=== PATIENT | female | born 1980 | race Caucasian/White ===

== ENCOUNTER 2019-03-21 05:30 | Inpatient (IN) ==
[2019-03-21] MEDS ORDERED: ONDANSETRON 4 MG/2 ML VIAL IV PRN ×2 (05:43→19:55)
[2019-03-21] MEDS ORDERED: MEPERIDINE 50 MG/1 ML VIAL IV PRN (05:43)
[2019-03-21] MEDS ORDERED: OXYTOCIN/LR 20 UNIT/1,000 ML BAG IV SCH (06:00)
[2019-03-21] MEDS: LACTATED RINGERS 1,000 ML IV SCH ×3 (06:05→13:16)
[2019-03-21 06:17] LABS: Basophils % 0.4 % (0.0-0.8); Eosinophils # 0.1 10*3/uL (0.0-0.87); Eosinophils % 0.8 % (0.00-10.9); Hematocrit 34.3 VOL% (35.7-47.0); Hemoglobin 10.7 GM/DL (12.0-16.0); Immature Granulocytes % 0.7 %; Immature Granulocytes Absolute 0.08 #; Lymphocytes # 2.8 10*3/uL (1.4-4.0); Lymphocytes % 25.4 % (21.3-54.2); Mean Corpuscular HGB Conc 31.2 GM/DL (32-36); Mean Corpuscular Volume 83.7 FL (87-102); Mean Platelet Volume 12.3 FL (9.6-12.0); Monocytes % 5.7 % (1.7-12.7); Platelet Count 191 T/CUMM (130-400); Red Cell Distribution Width 17.1 % (9.3-17.3); White Blood Count 10.9 T/CUMM (4-12)
[2019-03-21 06:44] LABS: Albumin 2.8 G/DL (3.4-5.0); Bilirubin,Total 0.9 MG/DL (0.2-1.0); Calcium 8.7 MG/DL (8.5-10.1); Osmolality,Calculated 276.5 MOS/KG (273-304); Total Protein 6.6 G/DL (6.4-8.3)
[2019-03-21 07:11] LABS: INR 0.9; Partial Thromboplastin Time 23.3 SECS (20.8-36.0)
[2019-03-21] MEDS ORDERED: ePHEDrine 50 MG/ML AMP IV PRN (08:05)
[2019-03-21] MEDS ORDERED: NALOXONE 0.4 MG/ML VIAL IV PRN (08:05)
[2019-03-21] MEDS ORDERED: diphenhydrAMINE 50 MG/1 ML VIAL IV PRN ×2 (08:05)
[2019-03-21] MEDS ORDERED: hydrOXYzine HCL 25 MG/1 ML VIAL IM PRN (08:05)
[2019-03-21] MEDS ORDERED: CITRIC ACID/SODIUM CITRATE 30 ML UDCUP PO ONE (08:05)
[2019-03-21] MEDS ORDERED: PROMETHAZINE 25 MG/1 ML VIAL IM ONE (08:05)
[2019-03-21] MEDS ORDERED: FAMOTIDINE 20 MG/2 ML VIAL IV ONE (08:05)
[2019-03-21] MEDS ORDERED: fentaNYL 2 MCG/ROPIV 0.2% EPID 100 ML EPIDURAL SCH (08:30)
[2019-03-21 11:15] LABS: Apearance,Urine CLEAR (Clear); Bilirubin,Urine Negative (Negative); Blood, Urine Negative (Negative); Glucose,Urine (UA) Negative (Negative); Ketones,Urine Negative (Negative); Mucus,Urine Occasional /LPF (Occasional); Nitrite,Urine Negative (Negative); Protein,Urine 30 MG/DL; RBC,Urine 1 /HPF (0-4); Squamous Epithelial Cell,Urine Occasional /HPF (0-10); Urine Color Yellow (Yellow); Urine Specific Gravity 1.017 (1.001-1.035); Urine Urobilinogen < 2.0 EU/DL (0.2-1.0); WBC,Urine <1 /HPF (0-6)
[2019-03-21] MEDS ORDERED: TRANEXAMIC ACID 1,000 MG/10 ML VIAL ONE (16:38)
[2019-03-21] MEDS ORDERED: OXYTOCIN/LR 20 UNIT/1,000 ML BAG IV ONE ×2 (16:38→19:55)
[2019-03-21] MEDS ORDERED: METHYLERGONOVINE 0.2 MG/1 ML AMP ONE (16:38)
[2019-03-21] MEDS ORDERED: miSOPROStoL 200 MCG TABLET ONE (16:38)
[2019-03-21] MEDS ORDERED: CARBOPROST TROMETHAMINE 250 MCG/ML AMP IM ONE (16:38)
[2019-03-21] MEDS ORDERED: AZITHROMYCIN INJ 500 MG in SODIUM CHLORIDE 0.9% 250 ML IV ONE (18:40)
[2019-03-21] MEDS ORDERED: fentaNYL 100 MCG/2 ML VIAL ONE (18:57)
[2019-03-21] MEDS ORDERED: LIDOCAINE MPF 2% /EPI 20 ML VIAL ONE (18:58)
[2019-03-21] MEDS ORDERED: BENZOCAINE 20%/MENTHOL 0.5% SPRAY 56 GM CAN TOP PRN (19:55)
[2019-03-21] MEDS ORDERED: DIPH/TET/ACEL PERT BOOSTER VACCINE 0.5 ML VIAL IM ONE (19:55)
[2019-03-21] MEDS ORDERED: RHO(D) IMMUNE GLOBULIN 300 MCG SYRINGE IM ONE (19:55)
[2019-03-21] MEDS ORDERED: WITCH HAZEL PADS 100/JAR TOP PRN (19:55)
[2019-03-21] MEDS ORDERED: BISACODYL 10 MG SUPP RECTAL PRN (19:55)
[2019-03-21] MEDS ORDERED: ACETAMINOPHEN 325 MG TABLET PO PRN (19:55)
[2019-03-21] MEDS ORDERED: MEASLES/MUMPS/RUBELLA VACCINE 0.5 ML VIAL SUBCUT ONE (19:55)
[2019-03-21] MEDS ORDERED: HYDROCORTISONE 2.5% RECTAL CREAM 30 GM TUBE TOP PRN (19:55)
[2019-03-21] MEDS ORDERED: LANOLIN 50% CREAM 0.3 OZ TUBE TOP PRN (19:55)
[2019-03-21] MEDS ORDERED: oxyCODONE/ACETAMINOPHEN 5-325 MG TABLET PO PRN (19:55)
[2019-03-21] MEDS: IBUPROFEN 800 MG TABLET PO PRN (22:08)
[2019-03-22] MEDS: DOCUSATE SODIUM 100 MG CAPSULE PO SCH ×3 (01:25→20:59)
[2019-03-22] MEDS: IBUPROFEN 800 MG TABLET PO PRN ×2 (04:05→15:13)
[2019-03-22 05:46] LABS: Basophils % 0.2 % (0.0-0.8); Eosinophils % 0.1 % (0.00-10.9); Hemoglobin 8.9 GM/DL (12.0-16.0); Immature Granulocytes % 0.6 %; Lymphocytes # 2.3 10*3/uL (1.4-4.0); Mean Corpuscular HGB Conc 30.7 GM/DL (32-36); Mean Corpuscular Volume 85.5 FL (87-102); Mean Platelet Volume 12.7 FL (9.6-12.0); Monocytes % 5.5 % (1.7-12.7); Neutrophils % 79.6 % (38.7-73.9); Platelet Count 157 T/CUMM (130-400); Red Blood Count 3.39 MC/CUMM (3.8-5.5); Red Cell Distribution Width 17.2 % (9.3-17.3); White Blood Count 16.6 T/CUMM (4-12)
[2019-03-22] MEDS: MAGNESIUM HYDROXIDE SUSP 30 ML UDCUP PO PRN ×2 (09:01→20:59)
[2019-03-22] MEDS: FERROUS SULFATE 325 MG TABLET PO SCH (09:02)
[2019-03-22] MEDS: oxyCODONE/ACETAMINOPHEN 5-325 MG TABLET PO PRN ×2 (10:22→22:23)
[2019-03-23] MEDS: IBUPROFEN 800 MG TABLET PO PRN ×2 (01:59→08:04)
[2019-03-23] MEDS: DOCUSATE SODIUM 100 MG CAPSULE PO SCH (09:22)
[2019-03-23] MEDS: FERROUS SULFATE 325 MG TABLET PO SCH (09:22)
[2019-03-23 09:27] VITALS: BP 136/72
== END 2019-03-23 12:50 | disposition home or self-care (01) | DRG 788 ==
LOC: N.LD 05:36 → N.OB 23:55
PROVIDERS: ADMIT Specialist; ATTEND Specialist
PROC: LDCSECT (ICD-10-PCS; 2019-03-21 18:35)

== ENCOUNTER 2020-06-04 06:24 | Inpatient (IN) ==
[2020-06-04] MEDS: LACTATED RINGERS 1,000 ML IV PRN ×2 (07:10→08:16)
[2020-06-04] MEDS ORDERED: OXYTOCIN/LR 20 UNIT/1,000 ML BAG IV ONE ×2 (07:23→11:41)
[2020-06-04 07:52] LABS: Basophils % 0.4 % (0.0-0.8); Eosinophils # 0.1 10*3/uL (0.0-0.87); Eosinophils % 1.1 % (0.00-10.9); Hematocrit 36.2 VOL% (35.7-47.0); Hemoglobin 11.8 GM/DL (12.0-16.0); Immature Granulocytes % 0.8 %; Immature Granulocytes Absolute 0.08 #; Lymphocytes # 2.2 10*3/uL (1.4-4.0); Lymphocytes % 21.4 % (21.3-54.2); Mean Corpuscular HGB Conc 32.6 GM/DL (32-36); Mean Corpuscular Volume 86.2 FL (87-102); Mean Platelet Volume 12.1 FL (9.6-12.0); Monocytes % 6.3 % (1.7-12.7); Platelet Count 164 T/CUMM (130-400); Red Cell Distribution Width 15.7 % (9.3-17.3); White Blood Count 10.2 T/CUMM (4-12)
[2020-06-04] MEDS ORDERED: FAMOTIDINE 20 MG/2 ML VIAL IV ONE ×2 (08:00→10:14)
[2020-06-04] MEDS ORDERED: CITRIC ACID/SODIUM CITRATE 30 ML UDCUP PO ONE (08:00)
[2020-06-04 08:04] LABS: Alanine Aminotransferase < 6 U/L (13-56); Albumin 2.7 G/DL (3.4-5.0); Alkaline Phosphatase 283 U/L (45-117); Aspartate Amino Transferase 15 U/L (0-37); Blood Urea Nitrogen 8 MG/DL (7-18); Calcium 9.1 MG/DL (8.5-10.1); Estimated Glom Filtration Rate 86 ML/MIN; Glucose 76 MG/DL (74-106); Osmolality,Calculated 271.7 MOS/KG (273-304); Total Protein 6.6 G/DL (6.4-8.3)
[2020-06-04] MEDS ORDERED: miSOPROStoL 200 MCG TABLET ONE (10:13)
[2020-06-04] MEDS ORDERED: CITRIC ACID/SODIUM CITRATE 30 ML UDCUP ONE (10:14)
[2020-06-04] MEDS ORDERED: LEVOFLOXACIN INJ 500 MG in PREMIX 1 EACH IV ONE (10:16)
[2020-06-04] MEDS ORDERED: PHENYLEPHRINE 1 MG/10 ML SYRINGE IV ONE ×2 (10:52→11:09)
[2020-06-04] MEDS ORDERED: BUPIVACAINE SPINAL 0.75% 2 ML AMP SPINAL ONE (10:52)
[2020-06-04] MEDS ORDERED: ONDANSETRON 4 MG/2 ML VIAL ONE (11:09)
[2020-06-04] MEDS ORDERED: DEXAMETHASONE 4 MG/1 ML VIAL ONE (11:17)
[2020-06-04] MEDS ORDERED: ROPIVACAINE 0.5% 30 ML VIAL ONE (11:17)
[2020-06-04 11:25] LABS: Cord Arterial Blood HCO3 21.6 MMOL/L
[2020-06-04 11:27] LABS: Cord Venous Blood HCO3 22.9 MMOL/L; Cord Venous Blood PCO2 40.5 MMHG; Cord Venous Blood PO2 32.4
[2020-06-04 11:34] LABS: Bilirubin,Urine Negative (Negative); Blood, Urine Negative (Negative); Glucose,Urine (UA) Negative (Negative); Ketones,Urine 20 mg/dL (Negative); Nitrite,Urine Negative (Negative); Protein,Urine Negative; RBC,Urine 2 /HPF (0-4); Squamous Epithelial Cell,Urine Occasional /HPF (0-10); Urine Appearance CLEAR (Clear); Urine Color Straw (Yellow); Urine Specific Gravity 1.011 (1.001-1.035); Urine Urobilinogen < 2.0 EU/DL (0.2-1.0); WBC,Urine <1 /HPF (0-6)
[2020-06-04] MEDS ORDERED: BISACODYL 10 MG SUPP RECTAL PRN (11:41)
[2020-06-04] MEDS ORDERED: LANOLIN 50% CREAM 0.3 OZ TUBE TOP PRN (11:41)
[2020-06-04] MEDS ORDERED: MEASLES/MUMPS/RUBELLA VACCINE 0.5 ML VIAL SUBCUT ONE (11:41)
[2020-06-04] MEDS ORDERED: HYDROCORTISONE 2.5% RECTAL CREAM 30 GM TUBE TOP PRN (11:41)
[2020-06-04] MEDS ORDERED: WITCH HAZEL PADS 100/JAR TOP PRN (11:41)
[2020-06-04] MEDS ORDERED: oxyCODONE/ACETAMINOPHEN 5-325 MG TABLET PO PRN (11:41)
[2020-06-04] MEDS ORDERED: RHO(D) IMMUNE GLOBULIN 300 MCG SYRINGE IM ONE (11:41)
[2020-06-04] MEDS ORDERED: DIPH/TET/ACEL PERT BOOSTER VACCINE 0.5 ML VIAL IM ONE (11:41)
[2020-06-04] MEDS ORDERED: ONDANSETRON 4 MG/2 ML VIAL IV PRN (11:41)
[2020-06-04] MEDS ORDERED: ACETAMINOPHEN 325 MG TABLET PO PRN (11:41)
[2020-06-04] MEDS ORDERED: BENZOCAINE 20%/MENTHOL 0.5% SPRAY 56 GM CAN TOP PRN (11:41)
[2020-06-04] MEDS ORDERED: hydrOXYzine HCL 25 MG/1 ML VIAL IM PRN (13:29)
[2020-06-04] MEDS ORDERED: diphenhydrAMINE 50 MG/1 ML VIAL IV PRN (13:29)
[2020-06-04] MEDS ORDERED: LACTATED RINGERS 1,000 ML IV SCH (13:30)
[2020-06-04] MEDS ORDERED: SODIUM CHLORIDE 0.9% 1,000 ML IV SCH (13:30)
[2020-06-04] MEDS: HYDROmorphone 2 MG/1 ML VIAL IV PRN ×2 (14:06→17:30)
[2020-06-04] MEDS: IBUPROFEN 800 MG TABLET PO PRN ×2 (15:49→23:27)
[2020-06-04] MEDS: SIMETHICONE CHEW 80 MG TABLET PO PRN (17:30)
[2020-06-04] MEDS ORDERED: LEVOFLOXACIN INJ 500 MG in PREMIX 1 EACH IV SCH (20:00)
[2020-06-04] MEDS: DOCUSATE SODIUM 100 MG CAPSULE PO SCH (20:57)
[2020-06-05] MEDS: oxyCODONE/ACETAMINOPHEN 5-325 MG TABLET PO PRN ×2 (03:03→12:33)
[2020-06-05 05:55] LABS: Basophils # 0.1 10*3/uL (0.0-0.2); Basophils % 0.4 % (0.0-0.8); Eosinophils # 0.1 10*3/uL (0.0-0.87); Eosinophils % 0.9 % (0.00-10.9); Hematocrit 30.7 VOL% (35.7-47.0); Hemoglobin 10.1 GM/DL (12.0-16.0); Immature Granulocytes % 0.6 %; Immature Granulocytes Absolute 0.09 #; Lymphocytes # 2.1 10*3/uL (1.4-4.0); Lymphocytes % 14.6 % (21.3-54.2); Mean Corpuscular HGB Conc 32.9 GM/DL (32-36); Mean Corpuscular Volume 86.7 FL (87-102); Mean Platelet Volume 12.8 FL (9.6-12.0); Monocytes % 7.3 % (1.7-12.7); Neutrophils % 76.2 % (38.7-73.9); Platelet Count 138 T/CUMM (130-400); Red Blood Count 3.54 MC/CUMM (3.8-5.5); Red Cell Distribution Width 15.2 % (9.3-17.3)
[2020-06-05 07:14] VITALS: BP 118/76
[2020-06-05] MEDS: IBUPROFEN 800 MG TABLET PO PRN (08:56)
[2020-06-05] MEDS ORDERED: INFLUENZA VIRUS VACCINE 0.5 ML SYRINGE IM ONE (09:00)
[2020-06-05] MEDS ORDERED: LEVOFLOXACIN INJ 500 MG in PREMIX 1 EACH IV SCH (11:00)
[2020-06-05] MEDS: SIMETHICONE CHEW 80 MG TABLET PO PRN (14:09)
[2020-06-05] MEDS: DOCUSATE SODIUM 100 MG CAPSULE PO SCH (14:42)
== END 2020-06-05 15:19 | disposition home or self-care (01) | DRG 787 ==
LOC: N.LD 06:24 → N.OB 16:49
PROVIDERS: ADMIT Specialist; ATTEND Specialist
PROC: LDCSECT (ICD-10-PCS; 2020-06-04 10:00)